=== PATIENT | female | born 2000 | race African-American/Black ===

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

== ENCOUNTER 2020-07-23 14:59 | Emergency (ER) | payer MEDICAID ==
[~2020-07-23] VITALS: Ht 162.6 cm; Wt 50.0 kg
[2020-07-23] MEDS ORDERED: ONDANSETRON HCL 4MG/2ML INJ IV ONE (16:45)
[2020-07-23] MEDS ORDERED: SODIUM CHLORIDE 0.9% 1,000 ML IV ONE (16:45)
[2020-07-23] MEDS ORDERED: PANTOPRAZOLE SODIUM 40 MG/VIAL IV ONE (16:45)
[2020-07-23] MEDS ORDERED: ONDANSETRON 4MG ODT PO ONE (17:15)
[2020-07-23 17:23] LABS: CLARITY URINE CLEAR (CLEAR); COLOR URINE YELLOW (YELLOW); KETONES URINE NEGATIVE (NEGATIVE); LEUKOCYTE ESTERASE URINE NEGATIVE (NEGATIVE); NITRITE URINE NEGATIVE (NEGATIVE); OCCULT BLOOD URINE NEGATIVE (NEGATIVE); PH URINE 7.5 (4.5-8.0); PROTEIN URINE 2+ (NEGATIVE); SPECIFIC GRAVITY URINE 1.028 (1.005-1.030)
[2020-07-23 17:36] LABS: BASOPHILS % 0.3 % (0.0-2.0); EOSINOPHILS % 0.1 % (0.0-5.0); HEMATOCRIT. 45.6 % (36.0-48.0); HEMOGLOBIN. 15.4 g/dL (12.0-16.0); LYMPHOCYTES % 17.4 % (20.0-50.0); MEAN CORPUSCULAR VOLUME 83.1 fL (81.0-99.0); MEAN PLATELET VOLUME 8.6 fl (7.4-10.4); MONOCYTES % 2.7 % (2.0-8.0); NEUTROPHILS % 79.5 % (40.0-76.0); PLATELET 239 x1000/uL (130-400); RED BLOOD CELL COUNT 5.49 mill/uL (4.2-5.4); RED CELL DISTRIBUTION WIDTH 13.8 % (11.6-14.6)
[2020-07-23 17:44] LABS: CHLORIDE 112 mEq/L (98-107)
[2020-07-23 17:45] LABS: INR 1.1; PROTHROMBIN TIME 11.7 sec (9.6-11.0)
[2020-07-23] MEDS ORDERED: PROT40 PO (18:12)
[2020-07-23] MEDS ORDERED: ONDA4TAB11 PO (18:12)
[2020-07-23] MEDS ORDERED: AZITHROMYCIN 500 MG TABLET PO STA (18:35)
[2020-07-23] MEDS ORDERED: CEFTRIAXONE SODIUM 250 MG/VIAL IM ONE (18:45)
[2020-07-23 20:18] VITALS: BP 109/78
[2020-07-23] MEDS ORDERED: LIDOCAINE HCL 1% 20ML VIAL (Pyxis) INJ INFIL ONE (20:30)
== END 2020-07-23 20:44 | disposition home or self-care (01) ==
LOC: ER 14:59
DX: T51.0X1A Toxic effect of ethanol, accidental (unintentional), initial encounter (principal); K29.70 Gastritis, unspecified, without bleeding; Z20.2 Contact with and (suspected) exposure to infections with a predominantly sexual mode of transmission; Y92.018 Other place in single-family (private) house as the place of occurrence of the external cause
CPT/HCPCS: 36415; 80053; 81003; 81025; 83690; 85025; 85610; 96361; 96372; 96374; 96375; 99284; C9113; J0696; J2405; J7030; Q0162

== ENCOUNTER 2024-09-15 11:59 | Emergency (ER) | payer MEDICAID ==
[~2024-09-15] VITALS: Ht 160 cm; Wt 52.0 kg
[~2024-09-15 11:59] MED LIST: ONDA-239 PO; PROT40 PO
[2024-09-15 12:03] VITALS: O2SAT 100
[2024-09-15 12:08] VITALS: BP 112/78; PULSE 93; RESP 16; TEMP 36.8; O2SAT 100
[2024-09-15 13:06] LABS: BASOPHILS % 0.4 % (0.0-2.0); EOSINOPHILS % 0.2 % (0.0-5.0); HEMATOCRIT. 34.6 % (36.0-48.0); HEMOGLOBIN. 11.1 g/dL (12.0-16.0); LYMPHOCYTES % 53.5 % (20.0-50.0); MEAN PLATELET VOLUME 8.2 fl (7.4-10.4); MONOCYTES % 2.4 % (2.0-8.0); NEUTROPHILS % 43.5 % (40.0-76.0); PLATELET 224 x1000/uL (130-400); RED BLOOD CELL COUNT 4.10 mill/uL (4.2-5.4); RED CELL DISTRIBUTION WIDTH 18.0 % (11.6-14.6)
[2024-09-15 13:19] LABS: CREATININE 0.7 mg/dL (0.6-1.0)
[2024-09-15 13:20] LABS: UREA NITROGEN BLOOD 12 mg/dL (9-23)
[2024-09-15 13:43] LABS: HCG SCREEN NEGATIVE
[2024-09-15 14:50] LABS: CLARITY URINE CLOUDY (CLEAR); COLOR URINE YELLOW (YELLOW); GLUCOSE URINE NEGATIVE (NEGATIVE); KETONES URINE TRACE (NEGATIVE); LEUKOCYTE ESTERASE URINE TRACE (NEGATIVE); NITRITE URINE POSITIVE (NEGATIVE); OCCULT BLOOD URINE NEGATIVE (NEGATIVE); PH URINE 6.5 (4.5-8.0); PROTEIN URINE NEGATIVE (NEGATIVE); SPECIFIC GRAVITY URINE 1.023 (1.005-1.030); UROBILINOGEN URINE 1.0 E.U./dL (0.2-1.0)
[2024-09-15 15:19] LABS: BACTERIA URINE 4+; RBC URINE NONE SEEN /hpf (0-2); SQUAMOUS EPITHELIAL CELL URINE FEW /lpf (RARE/1+)
[2024-09-21 15:10] LABS: AMPHETAMINE SCREEN Negative ng/mL (Cutoff:50); BARBITURATE SCREEN Negative ug/mL (Cutoff:0.1); BENZODIAZEPINE SCREEN Negative ng/mL (Cutoff:20); OPIATES SCREEN Negative ng/mL (Cutoff:5); PHENCYCLIDINE SCREEN Negative ng/mL (Cutoff:8)
== END 2024-09-15 16:28 | disposition home or self-care (01) ==
LOC: ER 11:59
DX: R53.1 Weakness (principal); G40.909 Epilepsy, unspecified, not intractable, without status epilepticus; Z90.81 Acquired absence of spleen; Z98.890 Other specified postprocedural states
CPT/HCPCS: 36415; 80048; 80307; 81003; 81025; 84703; 85025; 99283

== ENCOUNTER 2024-09-24 18:01 | Emergency (ER) | payer MEDICAID ==
[~2024-09-24] VITALS: Ht 157.5 cm; Wt 47.6 kg
[2024-09-24 18:16] VITALS: O2SAT 99
[2024-09-24] MEDS ORDERED: IBUP-2028 MT (20:31)
[2024-09-24] MEDS: IBUPROFEN 400MG TABLET PO ONE (20:45)
[2024-09-24 21:06] VITALS: BP 109/61; PULSE 88; RESP 18; TEMP 36.6; O2SAT 98
== END 2024-09-24 21:07 | disposition home or self-care (01) ==
LOC: ER 18:02
DX: S93.409A Sprain of unspecified ligament of unspecified ankle, initial encounter (principal); Z90.81 Acquired absence of spleen; Z98.890 Other specified postprocedural states; Z79.899 Other long term (current) drug therapy; W10.9XXA Fall (on) (from) unspecified stairs and steps, initial encounter; Y93.89 Activity, other specified; Y92.89 Other specified places as the place of occurrence of the external cause; Y99.8 Other external cause status
CPT/HCPCS: 73610; 99283; Z7610

== ENCOUNTER 2025-01-18 20:34 | Emergency (ER) | payer MEDICAID ==
[~2025-01-18] VITALS: Ht 165.1 cm; Wt 48.0 kg
[~2025-01-18 20:34] MED LIST changes: +IBUP-2028 MT
[2025-01-18 20:52] VITALS: O2SAT 100
[2025-01-18] MEDS: KETOROLAC 15MG/ML VIAL IM ONE (22:03)
[2025-01-18] MEDS: LIDOCAINE 5% PATCH TOP SCH (22:06)
[2025-01-18] MEDS ORDERED: LIDO-53 TP (22:36)
[2025-01-18] MEDS ORDERED: NAPR-1176 MT (22:36)
[2025-01-18] MEDS ORDERED: ACET-2708 MT (22:36)
[2025-01-18 22:54] VITALS: BP 121/76; PULSE 101; RESP 18; TEMP 36.7; O2SAT 100
== END 2025-01-18 22:54 | disposition home or self-care (01) ==
LOC: ER 20:34
DX: S72.432A Displaced fracture of medial condyle of left femur, initial encounter for closed fracture (principal); Z79.899 Other long term (current) drug therapy; X58.XXXA Exposure to other specified factors, initial encounter; Y93.01 Activity, walking, marching and hiking; Y92.89 Other specified places as the place of occurrence of the external cause; Y99.8 Other external cause status
CPT/HCPCS: 73560; 73610; 29505; 96372; 99284; J1885; Z7610 ×2